=== PATIENT | male | born 1985 | race Caucasian/White ===

== ENCOUNTER 2017-04-25 10:34 | Emergency (ER) | payer MEDICAID ==
[~2017-04-25] VITALS: Ht 175.3 cm; Wt 80.0 kg
[2017-04-25 12:00] LABS: HEMATOCRIT 39.3 % (39.2-51.8); HEMOGLOBIN 13.1 g/dL (13.7-18.0); WHITE BLOOD COUNT 7.8 x10^3/uL (3.4-10)
[2017-04-25] MEDS ORDERED: PHENAZOPYRIDINE 200 MG TABLET PO ONE (12:00)
[2017-04-25 12:09] LABS: BLOOD UREA NITROGEN 13 mg/dL (7-18)
[2017-04-25 12:13] LABS: ASPARTATE AMINO TRANSFERASE 15 U/L (15-37)
[2017-04-25] MEDS ORDERED: AZITHROMYCIN 250 MG TABLET ONE (12:57)
[2017-04-25] MEDS ORDERED: CEFTRIAXONE 1,000 MG ONE (12:57)
[2017-04-25] MEDS ORDERED: PHENAZOPYRIDINE 200 MG TABLET ONE (12:57)
[2017-04-25] MEDS ORDERED: AZITHROMYCIN 500 MG TABLET PO ONE (13:00)
[2017-04-25] MEDS ORDERED: CEFTRIAXONE 250 MG IM ONE ×2 (13:00)
[2017-04-25 13:12] VITALS: BP 102/66
[2017-04-25] MEDS ORDERED: CEFTRIAXONE 1,000 MG IM ONE (13:30)
== END 2017-04-25 13:15 | disposition home or self-care (01) ==
LOC: ED 12:34
DX: N34.1 Nonspecific urethritis (principal); G89.29 Other chronic pain; Z88.5 Allergy status to narcotic agent; Z88.6 Allergy status to analgesic agent
CPT/HCPCS: 36415; 74020; 80053; 81003; 85025; 87491; 87591; 96372; 99285; J0696

== ENCOUNTER 2019-08-07 14:08 | Emergency (ER) | payer MEDICAID ==
[~2019-08-07] VITALS: Ht 172.7 cm; Wt 105.3 kg
[2019-08-07 14:15] VITALS: BP 134/84
--- NOTE | 2019-08-07 14:31 | NUR ---
PATIENT BROUGHT BACK FROM TRIAGE WITH CHIEF COMPLAINT OF LOWER LEFT DENTAL PAIN. PLAN TO SEE DENTIST ON SATURDAY.
--- NOTE | 2019-08-07 14:42 | NUR ---
DISCHARGE INSTRUCTIONS REVIEWED
== END 2019-08-07 14:52 | disposition home or self-care (01) ==
LOC: ED 14:30
DX: K02.9 Dental caries, unspecified (principal); K08.89 Other specified disorders of teeth and supporting structures; F17.200 Nicotine dependence, unspecified, uncomplicated
CPT/HCPCS: 99283